=== PATIENT | male | born 1975 | race Caucasian/White ===

== ENCOUNTER 2020-04-13 14:09 | Inpatient (IN) ==
--- NOTE | 2020-04-13 14:15 | DR.GENAD ---
HPI Time Seen Time Seen by Provider: 04/13/20 14:12 HPI Comment HPI Comment: 44-year-old male with past medical history of substance/alcohol abuse presents to emergency department brought in by ambulance status post cardiac arrest. Patient engaging in alcohol as well as polysubstance abuse earlier today. Found down by family and appeared to be cyanotic. First responders on scene determined patient was apneic and pulseless. CPR was begun. On EMS arrival CPR was continued. At that time it was noted he had spontaneous return of circulation. Was noted to be breathing agonal only. 2 mg of Narcan administered with rapid resolution of respiratory distress. Patient became awake and alert. Vomited what appeared to be pill fragments. In route patient remained hemodynamically stable, awake and alert. Pulse ox 94% on room air. On arrival to emergency department patient is awake. Patient complaining of chest pain. Amnestic to event. Nurses notes reviewed Nurses Notes Review: Yes Source History Provided: Patient and EMS Timing Came on: Suddenly Severity Severity: Severe PMH PMH Past Medical History: Hypertension Past Surgical History: Yes Surgical History: Appendectomy Social History Alcohol Use: Heavy Do you use any recreational Drugs:: Yes ROS Review of Systems Unable to Obtain Due To: Altered mental status and Medical urgency PE Vital Signs Vitals: Temperature 36.7 C Pulse Rate 80 Respiratory Rate 15 Blood Pressure 130/86 O2 Sat by Pulse Oximetry 95 General Limitations: No Limitations General Appearance: Alert, In No Apparent Distress and Other (smells of alcohol and vomitus ) Head Head Exam: Normal Inspection Eyes Eye exam: Normal Appearance ENT ENT Exam: Normal Exam External Ear Exam: Normal External Inspection TM/Canal Exam: Bilateral: Normal Nose Exam: Normal Nose Exam Mouth Exam: Normal Inspection Throat Exam: Normal Inspection Neck Neck Exam: Normal Inspection Chest Chest Inspection: Normal Inspection Respiratory Respiratory Exam: Normal Lung Sounds Bilat Respiratory Exam: Bilateral: Clear to Auscultation Cardiovascular Cardiovascular Exam: Regular Rate and Normal Rhythm Abdominal Exam Abdominal Exam: Normal Inspection, Normal Bowel Sounds and Soft Extremities Extremities Exam: Normal Inspection Back Back Exam: Normal Inspection Neurologic Neurological Exam: Alert and Oriented X3 (a/o x 1) Psychiatric Psychiatric Exam: Normal Affect and Normal Mood Skin Skin Exam: Warm, Dry, Intact and Normal Color MDM Differential Diagnosis Differential Diagnosis: intoxication, polysubstance abuse, airway obstruction, NH, arrythmia COURSE Treatment Treatment: This is a 44-year-old gentleman with previous history of polysubstance abuse and alcoholism who presents status post cardiac arrest. Given Narcan prior to arrival with return of spontaneous circulation in respiration. Patient vomited multiple pill fragments. On arrival to ED patient was started on IV fluids. No to be acidotic by blood gas. Elevated lactic acid consistent with cardiac arrest. EKG without any ischemic changes. Troponin normal. Potassium low at 2.7, repleted. IV fluid resuscitation was continued. Chest x-ray without any acute abnormalities. Narcan drip initiated after recurrent sedation/respiratory depression. Discussed all details of case with Dr. Soriano who agrees to admit the patient to the ICU. 1527: Upon my evaluation, this patient had a high probability of imminent or life-threatening deterioration due to ___polysubstance overdose_, which required my direct attention, intervention, and personal management. I have personally provided _35__ minutes of critical care time exclusive of time spent on separately billable procedures. Time includes review of laboratory data, radiology results, discussion with consultants, and monitoring for p otential decompensation. Interventions were performed as documented above. Education/Counseling Education/Counseling: Patient Educated On: Treatment, Diagnosis, Prognosis and Needs for Follow Up ROR Labs Reviewed Laboratory Results Reviewed?: Yes Result Diagrams: 04/13/20 14:13 04/13/20 14:21 Laboratory: WBC 6.4 X10^3/uL (3.6-10.0) 04/13/20 14:13 RBC 4.52 X10^6/uL (4.7-6.0) L 04/13/20 14:13 Hgb 14.7 g/dL (13.5-18.0) 04/13/20 14:13 Hct 43.7 % (42.0-54.0) 04/13/20 14:13 MCV 96.8 fL (80.0-100.0) 04/13/20 14:13 MCH 32.5 pg (27.0-34.0) 04/13/20 14:13 MCHC 33.5 g/dL (33.0-35.0) 04/13/20 14:13 RDW 13.8 % (11.6-16.5) 04/13/20 14:13 Plt Count 327 X10^3/uL (150.0-450.0) 04/13/20 14:13 MPV 8.4 fL (7.4-11.0) 04/13/20 14:13 Neut % (Auto) 34.0 % (42.0-75.0) L 04/13/20 14:13 Lymph % (Auto) 56.0 % (21.0-51.0) H 04/13/20 14:13 Starr % (Auto) 8.6 % (0.0-13.0) 04/13/20 14:13 Eos % (Auto) 0.8 % (0.9-2.9) L 04/13/20 14:13 Baso % (Auto) 0.6 % (0.2-1.0) 04/13/20 14:13 Neut # (Auto) 2.2 x10^3/uL (2.2-4.8) 04/13/20 14:13 Lymph # (Auto) 3.6 X10^3/uL (1.3-2.9) H 04/13/20 14:13 Starr # (Auto) 0.5 x10^3/uL (0.3-0.8) 04/13/20 14:13 Eos # (Auto) 0.1 x10^3/uL (0.0-0.2) 04/13/20 14:13 Baso # (Auto) 0.0 X10^3/uL (0.0-0.1) 04/13/20 14:13 Absolute Nucleated RBC 0.3 /100WBC 04/13/20 14:13 Sample Site Rrad 04/13/20 14:20 ABG pH 7.400 (7.35-7.45) 04/13/20 14:20 ABG pCO2 25.0 mmHg (35.0-45.0) L 04/13/20 14:20 ABG pO2 117.0 mmHg (80.0-100.0) H 04/13/20 14:20 ABG HCO3 15.5 mmol/L (22-26) L* 04/13/20 14:20 ABG O2 Saturation 99.0 % (90-100) 04/13/20 14:20 ABG Base Excess -7.7 mmol/L (-2.0-2.0) L 04/13/20 14:20 Joshua Test Pos 04/13/20 14:20 A-a Gradient 1.0 mmHg 04/13/20 14:20 FiO2 21.0 04/13/20 14:20 Blood Gas Comments Pt gwyn well elj cdn 04/13/20 14:20 Sodium 141 mmol/L (136-145) 04/13/20 14:21 Corrected Sodium 145 mmol/L (136-145) 04/13/20 14:21 Potassium 2.4 mmol/L (3.5-5.1) L* 04/13/20 14:21 Chloride 104 mmol/L (98-107) 04/13/20 14:21 Carbon Dioxide 18.6 mmol/L (21-32) L 04/13/20 14:21 BUN 18 mg/dL (7-18) 04/13/20 14:21 Creatinine 1.42 mg/dL (0.70-1.30) H 04/13/20 14:21 Est GFR (MDRD) Af Amer > 60 (>60) 04/13/20 14:21 Est GFR (MDRD) Non-Af 58 (>60) L 04/13/20 14:21 Glucose 252 mg/dL (65-99) H 04/13/20 14:21 Lactic Acid 4.7 mmol/L (0.4-2.0) H 04/13/20 14:21 Calcium 8.5 mg/dL (8.5-10.1) 04/13/20 14:21 Corrected Calcium TNP 04/13/20 14:21 Total Bilirubin 0.80 mg/dL (0.2-1.0) 04/13/20 14:21 AST 29 Units/L (15-37) 04/13/20 14:21 ALT 38 Units/L (12-78) 04/13/20 14:21 Alkaline Phosphatase 60 Units/L (46-116) 04/13/20 14:21 Troponin I < 0.02 ng/mL (0-1.5) 04/13/20 14:21 Total Protein 7.2 g/dL (6.4-8.2) 04/13/20 14:21 Albumin 3.9 g/dL (3.4-5.0) 04/13/20 14:21 Globulin 3.3 g/dL (2.5-4.5) 04/13/20 14:21 Albumin/Globulin Ratio 1.2 Ratio (1.1-2.1) 04/13/20 14:21 Ethyl Alcohol mg/dL 122 mg/dL (0-19.9) H 04/13/20 14:21 XRAY XRAY Interpreted by: Radiologist X-ray Results: cxr 1 view: normal chest x ray EKG Rate: 99 [place]: Normal Rhythm: NSR Block: None Hypertrophy: None ST: Normal Opioid Opioid Risk Tool Total: 0 Total Score Risk Category: Low Risk Copyright: Apollo MCCORMACK predicting aberrant behaviors Diagnosis Discharge Problem: Cardiac arrest, Active substance abuse, Acidosis, lactic, PENNIE (acute kidney injury), Hypokalemia Instructions Forms: Patient Portal Social Distancing
[2020-04-13 14:18] VITALS: BMI 27.3
[2020-04-13] MEDS ORDERED: ZOFRAN INJ 4 MG VIAL IVP ONE ×2 (14:25→14:50)
[2020-04-13 14:27] LABS: BASOPHILS % (AUTO) 0.6 % (0.2-1.0); EOSINOPHILS # (AUTO) 0.1 x10^3/uL (0.0-0.2); EOSINOPHILS % (AUTO) 0.8 % (0.9-2.9); HEMATOCRIT 43.7 % (42.0-54.0); HEMOGLOBIN 14.7 g/dL (13.5-18.0); LYMPHOCYTES # (AUTO) 3.6 X10^3/uL (1.3-2.9); MEAN CORPUSCULAR HEMOGLOBIN 32.5 pg (27.0-34.0); MEAN CORPUSCULAR HGB CONC 33.5 g/dL (33.0-35.0); MEAN CORPUSCULAR VOLUME 96.8 fL (80.0-100.0); MEAN PLATELET VOLUME 8.4 fL (7.4-11.0); MONOCYTES # (AUTO) 0.5 x10^3/uL (0.3-0.8); MONOCYTES % (AUTO) 8.6 % (0.0-13.0); NEUTROPHILS # (AUTO) 2.2 x10^3/uL (2.2-4.8); PLATELET COUNT 327 X10^3/uL (150.0-450.0); RED BLOOD COUNT 4.52 X10^6/uL (4.7-6.0); RED CELL DISTRIBUTION WIDTH 13.8 % (11.6-16.5); WHITE BLOOD COUNT 6.4 X10^3/uL (3.6-10.0)
[2020-04-13 14:27] LABS: ABG ALLEN TEST POS; ABG BASE EXCESS -7.7 mmol/L (-2.0-2.0); ABG HCO3 15.5 mmol/L (22-26)
[2020-04-13] MEDS ORDERED: NS 1000 ML 1,000 ML IV ONE (14:29)
[2020-04-13] MEDS ORDERED: NARCAN INJ IVP ONE (14:32)
[2020-04-13] MEDS ORDERED: NARCAN INJ 2 MG in NS 500 ML IV 500 ML IV ONE (14:35)
[2020-04-13 14:40] LABS: ALANINE AMINOTRANSFERASE 38 Units/L (12-78); ALBUMIN 3.9 g/dL (3.4-5.0); ALKALINE PHOSPHATASE 60 Units/L (46-116); ASPARTATE AMINO TRANSFERASE 29 Units/L (15-37); BLOOD ALCOHOL 122 mg/dL (0-19.9); BLOOD UREA NITROGEN 18 mg/dL (7-18); CALCIUM 8.5 mg/dL (8.5-10.1); CARBON DIOXIDE 18.6 mmol/L (21-32); CHLORIDE 104 mmol/L (98-107); COR NA(FOR HYPERGLY) 145 mmol/L (136-145); CREATININE 1.42 mg/dL (0.70-1.30); SODIUM 141 mmol/L (136-145); TOTAL PROTEIN 7.2 g/dL (6.4-8.2); TROPONIN I < 0.02 ng/mL (0-1.5); eGFR NON BLACK RACES 58 (>60)
[2020-04-13 14:43] LABS: LACTIC ACID 4.7 mmol/L (0.4-2.0)
[2020-04-13] MEDS ORDERED: ZOFRAN INJ 4 MG VIAL ONE (14:51)
--- NOTE | 2020-04-13 14:56 | RAD ---
HISTORYArrest, chokingSTUDYPortable AP chestCOMPARISONNoneFINDINGSNormal heart size. The lungs are essentially clear and symmetrically inflated. No evidence for pneumonia, pneumothorax or pleural fluid.IMPRESSIONNo acute chest findings.Electronically signed by: SEDRICK CHOUDHARY (Apr 13, 2020 14:54:15)
[2020-04-13] MEDS ORDERED: POTASSIUM CHLORIDE IV SCH ×2 (15:00)
[2020-04-13] MEDS ORDERED: D5 NS IV SCH ×2 (15:00)
[2020-04-13 16:02] LABS: BILIRUBIN,URINE NEGATIVE (NEGATIVE); BLOOD/HEMOGLOBIN,URINE NEGATIVE (NEGATIVE); GLUCOSE, URINE 3+ (NEGATIVE); KETONES,URINE NEGATIVE (NEGATIVE); LEUKOCYTE ESTERASE ,URINE NEGATIVE (NEGATIVE); NITRITES,URINE NEGATIVE (NEGATIVE); PROTEIN,URINE 1+ (NEGATIVE); UROBILINOGEN,URINE NORMAL (NORMAL)
[2020-04-13 16:14] LABS: APPEARANCE,URINE CLEAR (CLEAR); COLOR,URINE YELLOW (YELLOW)
[2020-04-13 16:15] LABS: BACTERIA,URINE NEGATIVE /HPF (NEGATIVE); MUCUS,URINE MODERATE /HPF (NEGATIVE); RBC,URINE 0-2 /HPF (0-3); SQUAMOUS EPITHELIAL CELL,UR FEW /HPF (NEGATIVE)
[2020-04-13 18:13] LABS: LACTIC ACID 2.2 mmol/L (0.4-2.0)
[2020-04-13] MEDS ORDERED: NS 1000 ML 1,000 ML ONE (21:12)
[2020-04-14 06:01] LABS: BASOPHILS % (AUTO) 0.5 % (0.2-1.0); EOSINOPHILS % (AUTO) 0.1 % (0.9-2.9); HEMATOCRIT 39.9 % (42.0-54.0); HEMOGLOBIN 13.4 g/dL (13.5-18.0); LYMPHOCYTES # (AUTO) 1.6 X10^3/uL (1.3-2.9); LYMPHOCYTES % (AUTO) 21.8 % (21.0-51.0); MEAN CORPUSCULAR HEMOGLOBIN 32.5 pg (27.0-34.0); MEAN CORPUSCULAR HGB CONC 33.6 g/dL (33.0-35.0); MEAN CORPUSCULAR VOLUME 96.8 fL (80.0-100.0); MEAN PLATELET VOLUME 8.4 fL (7.4-11.0); MONOCYTES # (AUTO) 0.7 x10^3/uL (0.3-0.8); MONOCYTES % (AUTO) 9.1 % (0.0-13.0); NEUTROPHILS % (AUTO) 68.5 % (42.0-75.0); PLATELET COUNT 236 X10^3/uL (150.0-450.0); RED BLOOD COUNT 4.13 X10^6/uL (4.7-6.0); RED CELL DISTRIBUTION WIDTH 13.6 % (11.6-16.5); WHITE BLOOD COUNT 7.3 X10^3/uL (3.6-10.0)
[2020-04-14 06:18] LABS: ALANINE AMINOTRANSFERASE 30 Units/L (12-78); ALBUMIN 3.4 g/dL (3.4-5.0); ALKALINE PHOSPHATASE 60 Units/L (46-116); ASPARTATE AMINO TRANSFERASE 22 Units/L (15-37); BLOOD UREA NITROGEN 11 mg/dL (7-18); CALCIUM 7.7 mg/dL (8.5-10.1); CARBON DIOXIDE 24.8 mmol/L (21-32); CHLORIDE 105 mmol/L (98-107); CREATININE 0.94 mg/dL (0.70-1.30); SODIUM 141 mmol/L (136-145); TOTAL PROTEIN 6.3 g/dL (6.4-8.2); eGFR NON BLACK RACES > 60 (>60)
--- NOTE | 2020-04-14 07:09 | RAD ---
HISTORYSOBSTUDYAP chestCOMPARISONFebruary 2020FINDINGSTransverse cardiac diameter upper normal. The left lung is clear. There is a new area of patchy airspace disease in the right lower lung. The upper lobes are clear. No pleural fluid seen.IMPRESSIONInterval appearance of a localized right lower lobe infiltrate consistent with pneumonia.Electronically signed by: SEDRICK CHOUDHARY (Apr 14, 2020 07:07:27)
[2020-04-14] MEDS ORDERED: FORTAZ or TAZICEF VIAL INJ ONE (07:40)
[2020-04-14] MEDS ORDERED: NS 100 ML IV + SPIKE MINIBAG* 100 ML IV ONE (07:40)
[2020-04-14] MEDS ORDERED: LEVAQUIN PREMIX IV 750 MG 750 MG/150 ML BAG IV ONE (07:40)
[2020-04-14 07:52] VITALS: BP 154/101
[2020-04-14] MEDS ORDERED: FORTAZ or TAZICEF VIAL INJ 1 G in NS 100 ML IV + SPIKE MINIBAG* 100 ML IV SCH (08:00)
[2020-04-14] MEDS ORDERED: LEVAQUIN PREMIX IV 750 MG 750 MG/150 ML BAG IV SCH (09:00)
[2020-04-14] MEDS: NS 1000 ML 1,000 ML IV SCH ×2 (09:26)
--- NOTE | 2020-04-29 14:29 | DR.CARTERS ---
Short Stay Summary - Admission Date Date of Admission: 04/13/20 - Discharge Date Discharge Date: 04/14/20 - Admission Diagnoses (1) Cardiac arrest Status: Acute (2) Alcohol abuse Status: Acute (3) Active substance abuse Status: Acute (4) Acidosis, lactic Status: Acute - Hospital Course Hospital Course: IS A 44 YEAR OLD WHITE MALE. HE PRESENTED TO THE ER VIA EMS, STATUS POST CARDIAC ARREST. PATIENTS FAMILY REPORTS THAT PATIENT WAS ENGAGING IN ALCO HOL AND POLYSUBSTANCE ABUSE EARLIER IN THE DAY. FAMILY REPORTS THAT THEY FOUND LYING ON THE GROUND AND WAS NOTED TO BE CYANOTIC. EMS REPORTS THAT PATIENT WAS APNEIC AND PULSELESS. CPR WAS BEGUN. AFTER SEVERAL MINUTES OF CPR, PATIENT WAS NOTED TO HAVE SPONTANEOUS RETURN OF CIRCULATION. HE HAD AGONAL RESPIRATIONS. NARCAN 2MG WAS ADMINISTERED. HE HAD RAPID RESOLUTION OF RESPIRATORY DISTRESS AFTER NARCAN WAS ADMINISTERED. HE BECAME AWAKE AND ALERT. HE DID BEGIN TO VOMIT UP WHAT APPEARED TO BE PILL FRAGMENTS. PATIENTS SATURATION WAS NOTED TO BE 94% ON ARRIVAL TO THE ER. HE WAS PLACED ON NASAL CANNULA AT 3 LPM. HE DID COMPLAIN OF CHEST PAIN, BUT WAS AMNESIC TO THE EVENT THAT HAD TAKEN PLACE. HE HAD SHALLOW RESPIRATIONS. HIS PMH INCLUDES HTN, APPENDECTOMY, AND RECREATIONAL DRUG USE. ON ARRIVAL, VITALS WERE 98.0-88-22-94%-139/86 LABS WERE OBTAINED. ABNORMAL LAB VALUES INCLUDE THE FOLLOWING: RBC 4.52, POTASSIUM 2.4, CARBON DIOXIDE 18.6, CREATININE 1.42, GLUCOSE 252, LACTIC ACID 4.7. TROPONIN WAS NORMAL. URINALYSIS WAS OBTAINED AND WAS UNREMARKABLE. UDS IS POSITIVE FOR BENZODIAZEPINES AND MARIJUANA. ETHYL ALCOHOL LEVEL WAS 122 mg/dL. COVID-19 NEGATIVE. BLOOD CULTURES WERE SET UP. ABG REVEALED: PH 7.400, PC02 25, P02 117, HC03 15.5, 02 SAT 99, BASE EXCESS -7.7, FI02 21.0. EKG WAS OBTAINED AND REVEALED: SINUS RHYTHM WITH HR 99. CHEST XRAY REVEALED: Normal heart size. The lungs are essentially clear and symmetrically inflated. No evidence for pneumonia, pneumothorax or pleural fluid. WHILE IN THE ER, HE WAS GIVEN A NORMAL SALINE, ONE LITER BOLUS, AND ZOFRAN 4MG IV X 2 DOSES. HE WAS ADMITTED TO THE HOSPITAL FOR FURTHER EVALUATION AND TREATMENT OF POLYSUBTANCE ABUSE, CARDIAC ARREST, LACTIC ACIDOSIS. DUE TO RECURRENT EPISODES OF SEDATION AND RESPIRATORY DEPRESSION, PATIENT WAS STARTED ON A NARCAN DRIP. HE WAS ALSO STARTED ON D5NS AT 80 ML/HR. OTHERWISE, WE PLANNED TO FOLLOW UP WITH AM LABS AND CONTINUE TO MONITOR. ON THE MORNING FOLLOWIN ADMISSION, PATIENT IS ALERT AND ORIENTED, SITTING UP IN BED ON MORNING ROUNDS. HE DENIES CHEST PAIN OR ANY OTHER COMPLAINTS THIS MORNING. STAFF REPORTS THAT HE HAS RESTED WELL AND HAS NOT HAD ANY OVERNIGHT EVENTS. HE HAS ATE WELL THIS MORNING AND IS REQUESTING TO GO HOME. ON EXAMINATION, HEART IS REGULAR IN RATE AND RHYTHM. BILATERAL LUNGS ARE NOTED WITH DIMINISHED LUNG SOUNDS THROUGHOUT. ABDOMEN IS ROUND, SOFT, AND NON-TENDER WITH NORMAL BOWEL SOUNDS NOTED IN ALL QUADRANTS. HIS VITALS THIS MORNING ARE: 97.9-100-22-96%-144/94. LABS WERE OBTAINED. ABNORMAL LAB VALUES INCLUDE THE FOLLOWING: RBC 4.13, HGB 13.4, HCT 39.9, CALCIUM 7.7, TOTAL BILI 1.10, TOTAL PROTEIN 6.3. BLOOD CULTURES ARE PENDING. CHEST XRAY WAS OBTAINED AND REVEALED: Transverse cardiac diameter upper normal. The left lung is clear. There is a new area of patchy airspace disease in the right lower lung. The upper lobes are clear. No pleural fluid seen. WE PLANNED FOR DISCHARGE. INSTRUCTIONS FOR MEDICATIONS AND FOLLOW UP WERE DISCUSSED WITH PATIENT AND FAMILY. THEY VERBALIZED UNDERSTANDING OF ALL ORDERS. HE WAS GIVEN A NEW PRESCRIPTION FOR AUGMENTIN 875/125MG PO BID AND INSTRUCTED TO FOLLOW UP WITH HIS PCP IN ONE WEEK. PATIENT WAS DISCHARGED HOME IN STABLE, IMPROVED CONDITION. TIME SPENT ON CLINICAL ASSESSMENT, REVIEWING LABS AND IMAGING, DECISION MAKING, DOCUMENTATION, AND PREPARING DISCHARGE PAPERS GREATER THAN 75 MINUTES. - Discharge Medications Discharge Medications: Home Medication List NK 04/14/20 [History] amoxicillin-pot clavulanate [Augmentin] 1 tab PO BID #28 tab 04/14/20 [Rx] Prescriptions: amoxicillin-pot clavulanate [Augmentin] Juan C Soriano - Discharge Plan Disposition: HOME, SELF-CARE Condition: Stable Prescriptions: amoxicillin-pot clavulanate [Augmentin] 1 tab PO BID #28 tab - Follow up/Referrals Follow up/Referrals: NFD,None [Primary Care Provider] - 1 WEEK - Instructions Additional Instructions: diet as tolerated. activity as tolerated. Forms: Excuse From Work or School, Precautions for COVID19, Patient Portal, Social Distancing
== END 2020-04-14 09:29 | disposition home or self-care (01) | DRG 297 ==
LOC: ER 14:09 → OBS 15:17
PROVIDERS: ADMIT Internal Medicine; ATTEND Internal Medicine